=== PATIENT | female | born 1980 | race Caucasian/White ===

== ENCOUNTER 2022-02-12 13:25 | Emergency (ER) | payer OTHER ==
[2022-02-12 13:53] VITALS: BP 103/74; PULSE 79; TEMP 97.8; BMI 29.8
== END 2022-02-12 14:55 | disposition home or self-care (01) ==
LOC: FER 13:25
DX: S69.92XA Unspecified injury of left wrist, hand and finger(s), initial encounter (principal); X50.0XXA Overexertion from strenuous movement or load, initial encounter
CPT/HCPCS: 73110-TC-LT-FY; 99283-25